=== PATIENT | female | born 1960 | race Caucasian/White ===

== ENCOUNTER 2018-07-26 18:36 | Outpatient (REF) | payer MEDICAID, SELFPAY ==
[2018-07-26 22:11] LABS: Abs Immature Grans 0.01 k/cumm (0.0-0.09); Absolute Basophil Count 0.03 k/cumm (0.0-0.2); Absolute Eosinophil Count 0.24 k/cumm (0.0-0.7); Absolute Lymphocyte Count 2.29 k/cumm (1.2-3.4); Absolute Monocyte Count 0.37 k/cumm (0.11-0.7); Absolute Neutrophil Count 2.99 k/cumm (1.2-6.7); Basophils % 0.5; HCT 37.4 % (36.0-46.0); HGB 12.7 g/dL (12.0-15.5); Immature Grans % 0.2; Lymphocytes % 38.6; Mean Corpuscular Hemoglobin 31.1 pg (27.0-33.0); Mean Corpuscular Volume 91.7 fL (80-95); Mean Platelet Volume 10.3 fL (8.0-11.0); Monocytes % 6.2; Neutrophils % 50.5; Platelet Count 214 x1000/uL (130-400); RBC 4.08 m/cumm (4.00-5.20); White Blood Cell Count 5.93 k/cumm (4.4-10.8)
[2018-07-26 22:23] LABS: ALT 27 U/L (12-78); AST 14 U/L (15-37); Albumin 3.9 g/dL (3.4-5.0); Alkaline Phosphatase 70 U/L (46-116); Amylase 51 U/L (25-115); Anion Gap 8.2 mmol/L (3-11); BUN 13 mg/dL (7-18); Bilirubin, Total 0.2 mg/dL (0.2-1.0); CO2 27.8 mmol/L (21.0-32.0); CREATININE 0.78 mg/dL (0.55-1.02); Calcium 9.1 mg/dL (8.5-10.1); Chloride 106 mmol/L (98-107); Glucose 92 mg/dL (70-100); Lipase 95 U/L (73-393); Potassium 3.8 mmol/L (3.5-5.1); Sodium 142 mmol/L (136-145); Total Protein 6.8 g/dL (6.4-8.2)
== END 2018-07-26 18:56 ==
LOC: NCHCN 18:36
PROVIDERS: PCP Family Medicine; Visit Provider Family Medicine
DX: R10.11 Right upper quadrant pain (principal); R63.0 Anorexia; R11.0 Nausea
CPT/HCPCS: 80053; 83690; 82150; 85025

== ENCOUNTER 2019-02-20 15:16 | Outpatient (REF) | payer MEDICAID, SELFPAY ==
[2019-02-22 10:55] LABS: Lyme Ab w Rflx to Lyme Confirm Negative
== END 2019-02-20 15:36 ==
LOC: NCHCN 15:16
PROVIDERS: PCP Family Medicine; Visit Provider Registered Nurse
DX: R20.2 Paresthesia of skin (principal); R20.0 Anesthesia of skin
CPT/HCPCS: 86618

== ENCOUNTER 2020-03-14 16:16 | Outpatient (REF) | payer MEDICAID, SELFPAY ==
[2020-03-14 21:11] LABS: ALT 27 U/L (14-59); AST 16 U/L (15-37); Albumin 4.1 g/dL (3.4-5.0); Alkaline Phosphatase 66 U/L (46-116); Anion Gap 9.3 mmol/L (3-11); BUN 5 mg/dL (7-18); Bilirubin, Total 0.4 mg/dL (0.2-1.0); CO2 27.7 mmol/L (21.0-32.0); Chloride 103 mmol/L (98-107); Glucose 109 mg/dL (74-106); NT-proBNP 18 pg/mL (<300); Sodium 140 mmol/L (136-145); Total Protein 6.8 g/dL (6.4-8.2)
== END 2020-03-14 16:36 ==
LOC: NCHCN 16:16
PROVIDERS: PCP Family Medicine; Visit Provider Registered Nurse
DX: R07.89 Other chest pain (principal); R60.0 Localized edema; R82.998 Other abnormal findings in urine
CPT/HCPCS: 80053; 83880; 87086

== ENCOUNTER 2020-04-03 15:52 | Outpatient (REF) | payer MEDICAID, SELFPAY ==
[2020-04-03 22:05] LABS: Vitamin D 25 Total 43.8 ng/ml (30-100)
== END 2020-04-03 16:12 ==
LOC: NCHCN 15:52
PROVIDERS: PCP Family Medicine; Visit Provider Registered Nurse
DX: F32.9 Major depressive disorder, single episode, unspecified (principal)
CPT/HCPCS: 82306

== ENCOUNTER 2020-05-01 19:53 | Outpatient (REF) | payer MEDICAID, SELFPAY ==
[2020-05-05 04:33] LABS: Patient Race White; SARS-CoV-2 RNA Undetected (Undetected); SARS-CoV-2 Specimen Source Nasal
== END 2020-05-01 20:13 ==
LOC: NCHCN 19:53
PROVIDERS: PCP Family Medicine; Visit Provider Registered Nurse
DX: R19.7 Diarrhea, unspecified (principal)
CPT/HCPCS: U0003

== ENCOUNTER 2020-06-25 18:21 | Outpatient (REF) | payer MEDICAID, SELFPAY | END 2020-06-25 18:41 | LOC: NCHCN 18:21 | PROVIDERS: PCP Family Medicine; Visit Provider Registered Nurse | DX: R31.9 Hematuria, unspecified (principal) | CPT/HCPCS: 87086; 87480; 87510; 87660 ==

== ENCOUNTER 2020-09-15 18:17 | Outpatient (REF) | payer MEDICAID, SELFPAY ==
[2020-09-15 21:27] LABS: Abs Immature Grans 0.01 10^3/uL (0.0-0.06); Absolute Basophil Count 0.04 10^3/uL (0.0-0.2); Absolute Eosinophil Count 0.16 10^3/uL (0.0-0.7); Absolute Lymphocyte Count 2.41 10^3/uL (1.2-3.4); Absolute Monocyte Count 0.39 10^3/uL (0.1-0.8); Absolute Neutrophil Count 3.28 10^3/uL (1.2-6.7); Basophils % 0.6; Eosinophils % 2.5; HCT 39.9 % (36.0-46.0); HGB 13.9 g/dL (11.2-15.7); Immature Grans % 0.2; Lymphocytes % 38.3; MCH 31.4 pg (27.0-33.0); MCHC 34.8 % (32.0-36.0); MCV 90.1 fL (80-95); MPV 10.5 fL (8.0-11.0); Monocytes % 6.2; Neutrophils % 52.2; Nucleated RBC 0 %; Platelet Count 243 10^3/uL (130-400); RBC 4.43 10^6/uL (3.93-5.22); RDW 12.4 % (11.7-14.6); RDW-SD 40.4 fL; WBC 6.29 10^3/uL (4.4-10.8)
[2020-09-15 21:40] LABS: ALT 42 U/L (14-59); AST 21 U/L (15-37); Albumin 4.3 g/dL (3.4-5.0); Alkaline Phosphatase 81 U/L (46-116); Anion Gap 10.7 mmol/L (3-11); BUN 13 mg/dL (7-18); Bilirubin, Total 0.4 mg/dL (0.2-1.0); CO2 27.3 mmol/L (21.0-32.0); CREATININE 0.8 mg/dL (0.55-1.02); Calcium 9.7 mg/dL (8.5-10.1); Chloride 104 mmol/L (98-107); Glucose 116 mg/dL (74-106); Lipase 147 U/L (73-393); Potassium 3.6 mmol/L (3.5-5.1); Sodium 142 mmol/L (136-145); Total Protein 7.4 g/dL (6.4-8.2)
== END 2020-09-15 18:18 | disposition home or self-care (01) ==
LOC: NCHCN 18:17
PROVIDERS: PCP Family Medicine; Visit Provider Nurse Practitioner Family
DX: R10.11 Right upper quadrant pain (principal); K21.9 Gastro-esophageal reflux disease without esophagitis; K58.9 Irritable bowel syndrome, unspecified; K76.0 Fatty (change of) liver, not elsewhere classified
CPT/HCPCS: 80053; 83690; 85025

== ENCOUNTER 2020-11-26 18:20 | Outpatient (REF) | payer MEDICAID, SELFPAY | END 2020-11-26 18:21 | disposition home or self-care (01) | LOC: NCHCN 18:20 | PROVIDERS: PCP Family Medicine; Visit Provider Registered Nurse | DX: R30.0 Dysuria (principal); N76.0 Acute vaginitis | CPT/HCPCS: 87086; 87480; 87510; 87660 ==

== ENCOUNTER 2021-03-06 15:26 | Outpatient (REF) | payer MEDICAID, SELFPAY ==
[2021-03-06 21:03] LABS: Bacteria Negative HPF (Negative); Crystals Negative HPF (Negative); Epithelial Cells Few HPF (Negative); Mucus Negative (Negative); RBC 0-2 HPF (0-2); WBC 0-2 HPF (0-5)
[2021-03-06 21:04] LABS: C & S Indicated? No
== END 2021-03-06 15:27 | disposition home or self-care (01) ==
LOC: NCHCN 15:26
PROVIDERS: PCP Family Medicine; Visit Provider Registered Nurse
DX: R31.9 Hematuria, unspecified (principal)
CPT/HCPCS: 81015

== ENCOUNTER 2021-08-07 12:00 | Outpatient (REF) | payer MEDICAID, SELFPAY ==
--- OUTSIDE RECORDS SUMMARY | 2021-08-07 12:04 | XMS_ITS | CCD ---
:1960 Author Care Team Providers Name Role Phone Ariane SIMMS Attending Physician Unavailable Ariane SIMMS Rounding (Secondary) Physician Unavailab le Vital Signs Unknown or Not Available. Allergies Allergy Code Allergy Type Reaction Status TOPIRAMATE {Clinical 0 Drug allergy SUICICAL - CAN TAKE Active monitoring TOPIRAMATE unavailable} TRAMADOL 89525 Drug allergy HALLUCINATIONS Active LYRICA 288607 Drug allergy SWELLING Active Procedures Unknown or Not Available. History of Immunizations Unknown or Not Available. Problems Unknown or Not Available. Results Unknown or Not Available. Active Medications Unknown or Not Available. Medications Administered During Visit Unknown or Not Available. Encounters Encounter Diagnosis Diagnosis Code Start Date Obstructive sleep apnea (adult) (pediatric) G4733 06/17/2021 Social History Smoking Status Code Start Date End Date Never smoker [id number] Patient Decision Aids Unknown or Not Available. Discharge Instructions You were admitted to [facility] on 06/17/2021 08:23 with a principal diagnosis of Obstructive sleep apnea (ad ult) (pediatric) You were discharged from [facility] on 06/17/2021 08:49 Should you have any questions prior to d ischarge, please contact a member of your healthcare team. If you have left the ho spital and have any questions, please contact your primary care physician. Chief Complaint and Reason For Visit Unknown or Not Available. Function Status Unknown or Not Available. Plan of Care Unknown or Not Available. Referral/Transition of Care Unknown or Not Available.
[2021-08-08 15:26] LABS: COVID-19 RT-PCR UVMMC Result Negative (Negative)
== END 2021-08-07 12:01 | disposition home or self-care (01) ==
LOC: NCHCN 12:00
PROVIDERS: PCP Family Medicine; Visit Provider Registered Nurse
DX: Z20.822 Contact with and (suspected) exposure to COVID-19 (principal)
CPT/HCPCS: U0003

== ENCOUNTER 2021-10-14 12:27 | Outpatient (REF) | payer MEDICAID, SELFPAY ==
[2021-10-14 21:49] LABS: HCT 40.8 % (36.0-46.0); HGB 13.5 g/dL (11.2-15.7); MCH 30.4 pg (27.0-33.0); MCHC 33.1 % (32.0-36.0); MCV 91.9 fL (80-95); MPV 10.4 fL (8.0-11.0); Platelet Count 233 10^3/uL (130-400); RBC 4.44 10^6/uL (3.93-5.22); RDW 12.5 % (11.7-14.6); RDW-SD 42.5 fL; WBC 6.24 10^3/uL (4.4-10.8)
[2021-10-14 22:15] LABS: ALT 32 U/L (14-59); AST 15 U/L (15-37); Albumin 4.2 g/dL (3.4-5.0); Alkaline Phosphatase 71 U/L (46-116); Anion Gap 7.9 mmol/L (3-11); BUN 13 mg/dL (7-18); Bilirubin, Total 0.5 mg/dL (0.2-1.0); CO2 29.1 mmol/L (21.0-32.0); CREATININE 0.7 mg/dL (0.55-1.02); Calcium 9.2 mg/dL (8.5-10.1); Chloride 103 mmol/L (98-107); Glucose 79 mg/dL (74-106); Potassium 4.2 mmol/L (3.5-5.1); Sodium 140 mmol/L (136-145); TSH 1.06 uIU/mL (0.36-3.74); Total Protein 7.2 g/dL (6.4-8.2)
[2021-10-16 12:09] LABS: COVID-19 RT-PCR UVMMC Result Negative (Negative)
== END 2021-10-14 12:28 | disposition home or self-care (01) ==
LOC: NCHCN 12:27
PROVIDERS: PCP Family Medicine; Visit Provider Registered Nurse
DX: R53.83 Other fatigue (principal); E66.9 Obesity, unspecified; Z02.89 Encounter for other administrative examinations; Z20.822 Contact with and (suspected) exposure to COVID-19; J06.9 Acute upper respiratory infection, unspecified
CPT/HCPCS: 80053; 85027; U0003; 84443

== ENCOUNTER 2021-11-04 18:50 | Outpatient (REF) | payer MEDICAID, SELFPAY ==
[2021-11-06 12:29] LABS: COVID-19 RT-PCR UVMMC Result Negative (Negative)
== END 2021-11-04 18:51 | disposition home or self-care (01) ==
LOC: NCHCN 18:50
PROVIDERS: PCP Family Medicine; Visit Provider Registered Nurse
DX: J06.9 Acute upper respiratory infection, unspecified (principal); Z20.822 Contact with and (suspected) exposure to COVID-19
CPT/HCPCS: U0003